=== PATIENT | female | born 1995 | race Caucasian/White ===

== ENCOUNTER 2024-06-13 19:02 | Emergency (ER) | payer SELFPAY | END 2024-06-13 21:53 | disposition home or self-care (01) | LOC: MW.ED 19:02 | DX: T25.221A Burn of second degree of right foot, initial encounter (principal); T25.222A Burn of second degree of left foot, initial encounter; X58.XXXA Exposure to other specified factors, initial encounter | CPT/HCPCS: 99283 ==